=== PATIENT | male | born 1980 | race Caucasian/White ===

== ENCOUNTER 2016-02-29 16:20 | Outpatient (RCR) | payer OTHER ==
[~2016-02-29 16:20] MED LIST: KLONOPIN 0.5MG0.5 MG PO; LAMICTAL 100MG100 MG PO; LAMICTAL200 MG PO; METOPROLOL25 MG PO; NAMENDA XR 7 PO; NORCO 325 MG-51 TAB PO; TOPROL XL 25MG25 MG PO; ZOFRAN 4MG T4 MG/TAB PO; ZOLOFT 100MG100 MG PO
== END 2016-05-29 | disposition home or self-care (01) ==
LOC: WSOH
DX: S61.200A Unspecified open wound of right index finger without damage to nail, initial encounter (principal); W26.0XXA Contact with knife, initial encounter; Y92.512 Supermarket, store or market as the place of occurrence of the external cause; Y99.0 Civilian activity done for income or pay

== ENCOUNTER → 2016-03-02 | Outpatient (CLI) | payer OTHER | LOC: BHSO 09:52 | DX: F41.1 Generalized anxiety disorder (principal) ==

== ENCOUNTER → 2016-04-10 | Outpatient (CLI) | payer BC | LOC: BHSO 16:04 | DX: F42.2 Mixed obsessional thoughts and acts (principal) ==

== ENCOUNTER → 2016-04-14 | Outpatient (CLI) | payer BC | LOC: BHSO 10:00 | DX: F42.2 Mixed obsessional thoughts and acts (principal) ==

== ENCOUNTER → 2016-06-08 | Outpatient (CLI) | payer BC | LOC: BHSO 16:01 | DX: F41.1 Generalized anxiety disorder (principal) ==

== ENCOUNTER → 2016-06-12 | Outpatient (CLI) | payer BC | LOC: BHSO 15:58 | DX: F42.2 Mixed obsessional thoughts and acts (principal) ==